=== PATIENT | female | born 1940 | race Caucasian/White ===

== ENCOUNTER → 2016-09-22 | Outpatient (CLI) | payer OTHER ==
[~2016-09-22] MED LIST: ALLOPURINOL 10100 M1 PO; AMLODIPINE BESYL5 M1 PO; APAP500 PO; ASA81BEC PO; BENZONATATE100 MG PO; BUPROPION HCL100 MG PO; CARVEDILOL25 MG PO; CLARITIN10 MG PO; CLEOCIN HCL300 MG PO; ENOXAPARIN60 MG/0.1 SUBQ; FERREX 150 FORT1 CAP PO; FISH OIL 1,001000 M2 PO; IBUPROFEN 800800 M1 PO; JANTOVEN5 MG PO; JANTOVEN6 MG PO; LASIX 40 MG TAB40 M2 PO; LEVAQUIN 250 M250 MG PO; LIPITOR 20 MG T20 M1 PO; LISINOPRIL5 MG PO; NAPROSYN500 MG PO; NEXIUM40 MG PO; NORCO 5-325 TA1 EACH PO; NORVASC5 MG PO; ONDANSETRON HCL4 M2 PO; PACERONE 200 M200 M1 PO; POTASSIUM20 PO; PREDNISONE 20 M20 MG PO; PROAIR HFA8.5 GM PO; SYMBICORT80 MCG/4.1 INH; VITAMIN D1000 UNI1 PO; ZANTAC 150MG T150 MG; ZYRTEC-D TABLE1 EAC1 PO; ZYRTEC10 M2 PO
== END ==
LOC: CAT 10:23
DX: J32.9 Chronic sinusitis, unspecified (principal)

== ENCOUNTER 2016-11-20 15:49 | Inpatient (IN) | payer OTHER ==
[~2016-11-20] VITALS: Ht 157.5 cm; Wt 86.2 kg
--- NOTE | ~2016-11-20 | 2DMMODE ---
[facility] [address] [place] [address] 2 D/M-MODE ECHOCARDIOGRAM Name: NICHOKETURAH DELMA Room #: 423-1 ADM IN M.R.#: [id number] Admission: 11/20/16 Attend Phys: Burt Noriega, Discharge: Date of : 40 Date of Service: 11/21/16 1225 Report #: [id number] THIS REPORT FOR: //name// APPROVED REPORT Study performed: 11/21/2016 11:21:03 EXAM: Comprehensive 2D, Doppler, and color-flow Echocardiogram Patient Location: Echo lab Room #: [facility] Status: routine Other Information Study Quality: Adequate Indications Acute Kidney Injury Hx SVT, DM, AFIB, HTN, AVR,CHF 2D Dimensions LVEF(%): 26.28 (>50%) IVSd: 11.01 (7-11mm) LVOT Diam: 18.87 (18-24mm) LVDd: 45.68 mm PWd: 10.72 (7-11mm) LVDs: 40.14 (25-40mm) Aortic Root: 32.63 mm IVC: 2.00 mm Reed's LVEF: 26.28 % Volumes Left Atrial Volume (Systole) Single Plane 4CH: 76.23 mL Single Plane 2CH: 95.11 mL LA ESV Index: 48.00 mL/m2 Aortic Valve AoV Peak Mac.: 4.18 m/s AO Peak Gr.: 69.78 mmHg LVOT Max P.62 mmHg AO Mean Gr.: 39.74 mmHg AO V2 Mean: 2.99 m/s LVOT Max V: 1.19 m/s AO V2 VTI: 118.45 cm ABIOLA Vmax: 0.79 cm2 Mitral Valve E/A Ratio: 1.2 MV Decel. Time: 334.72 ms MV E Max Mac.: 1.29 m/s MV A Mac.: 1.12 m/s [facility] [place] [address] 2 D/M-MODE ECHOCARDIOGRAM Name: KETURAH TORRE Room #: 423-1 ADM IN M.R.#: [id number] Admission: 11/20/16 Attend Phys: Burt Noriega, Discharge: Date of : 40 Date of Service: 11/21/16 1225 Report #: [id number] MV PHT: 97.07 ms IVRT: 64.59 ms Pulmonary Valve PV Peak Mac.: 1.20 m/s PV Peak Gr.: 5.74 mmHg Pulmonary Vein P Vein S: 0.49 m/s P Vein D: 0.67 m/s P Vein S/D Ratio: 0.73 Tricuspid Valve TR Peak Mac.: 3.34 m/s RAP Estimate: 5.00 mmHg TR Peak Gr.: 44.56 mmHg PA Pressure: 50.00 mmHg Left Ventricle The left ventricle is normal size. Mild concentric left ventricular hypertrophy. The left ventricular systolic function is normal. The left ventricular ejection fraction is within the normal range. LVEF is 50%. Right Ventricle The right ventricle is normal size. The right ventricular systolic function is normal. Atria Left atrium is moderately dilated. The right atrium size is normal. Aortic Valve [place] Mechanical aortic valve is present. (size unknown) Peak velocity of 4.2 m/s, peak pressure gradient of 70 mmHg and a mean of 40 mmHg. Trace aortic regurgitation. Mitral Valve Moderate mitral annular calcification. Trace mitral regurgitation. No evidence of mitral valve stenosis. Tricuspid Valve The tricuspid valve is normal in structure. There is trace tricuspid regurgitation. The right atrial pressure is estimated at 5 mmHg. There is moderate pulmonary hypertension with an estimated PAP of 50 mmHg[place] [address] 2 D/M-MODE ECHOCARDIOGRAM Name: KETURAH TORRE Room #: 423-1 [facility]#: [id number] Admission: 11/20/16 Attend Phys: Burt Noriega, Discharge: Date of : 40 Date of Service: 11/21/16 1225 Report #: [id number] The pulmonary valve is normal in structure. There is no pulmonic valvular regurgitation. Great Vessels The aortic root is normal in size. IVC is normal in size and collapses >50% with inspiration. Pericardium There is no pericardial effusion. <Conclusion> The left ventricle is normal size. LVEF is 50%. Left atrium is moderately dilated. [place] Mechanical aortic valve is present. (size unknown) Peak velocity of 4.2 m/s, peak pressure gradient of 70 mmHg and a mean of 40 mmHg. Velocity is consistent with stenotic physiology Trace aortic regurgitation. Moderate mitral annular calcification. Trace mitral regurgitation. The tricuspid valve is normal in structure. There is trace tricuspid regurgitation. The right atrial pressure is estimated at 5 mmHg. There is moderate pulmonary hypertension with an estimated PAP of 50 mmHg. <ELECTRONICALLY SIGNED> By: Don Leonard MD 11/21/16 1225 1225 1225 Don Leonard MD /INF
[2016-11-20 15:49] VITALS: BP 120/47
[2016-11-20 16:28] LABS: BASOPHILS 0.8 % (0.0-2.0); EOSINOPHILS 1.8 % (0.0-3.0); HEMATOCRIT 32.8 % (37.0-47.0); HEMOGLOBIN 10.9 gm/dL (12.0-15.0); LYMPHOCYTES 21.9 % (24.0-44.0); MCH 31.5 pg (26.0-34.0); MCHC 33.2 g/dL (28.0-37.0); MCV 94.8 fL (80.0-100.0); MONOCYTES 11.6 % (1.0-8.0); PLATELET COUNT 197 thou/uL (150-400); POLYS 63.9 % (36.0-66.0); RBC 3.46 mil/uL (4.20-5.00); RDW 14.9 % (10.5-14.5); WBC 6.3 thou/uL (4.0-11.0)
[2016-11-20 16:29] LABS: MANUAL DIFF NO
[2016-11-20 16:36] LABS: CALCIUM 8.3 mg/dL (8.5-10.1); CREATININE 3.2 mg/dL (0.6-1.0); POTASSIUM 5.1 mmol/L (3.5-5.1)
[2016-11-20 16:42] LABS: ALBUMIN 3.5 g/dL (3.4-5.0); TOTAL BILIRUBIN 0.7 mg/dL (<0.1-1.0); TOTAL PROTEIN 6.7 g/dL (6.4-8.2)
[2016-11-20] MEDS ORDERED: COUMADIN 5 MG TA5 M1 PO (17:16)
[2016-11-20] MEDS ORDERED: TORSEMIDE10 MG PO (17:16)
[2016-11-20 17:52] LABS: URINE BILIRUBIN NEGATIVE (Negative); URINE BLOOD NEGATIVE (Negative); URINE COLOR YELLOW; URINE GLUCOSE-RANDOM* NEGATIVE (Negative); URINE KETONES NEGATIVE (Negative); URINE LEUKOCYTES-REFLEX NEGATIVE (Negative); URINE PROTEIN (DIPSTICK) NEGATIVE (Negative); URINE SPECIFIC GRAVITY 1.015 (1.003-1.035); URINE UROBILINOGEN 0.2 E.U./dl (0.2-1.0)
[2016-11-20 18:43] VITALS: BP 148/57
[2016-11-20 18:44] VITALS: BP 148/57
[2016-11-20 19:15] VITALS: BP 148/57
[2016-11-20 19:43] VITALS: BP 148/54
[2016-11-20 21:18] VITALS: BP 148/54
[2016-11-20] MEDS ORDERED: ALLOPURINOL 10100 M1 PO (22:39)
[2016-11-20] MEDS ORDERED: DEMADEX20 MG PO (22:40)
[2016-11-21 03:35] VITALS: BP 153/100
[2016-11-21 07:33] VITALS: BP 146/54
[2016-11-21 08:50] LABS: CALCIUM 8.3 mg/dL (8.5-10.1); CREATININE 2.5 mg/dL (0.6-1.0); POTASSIUM 4.4 mmol/L (3.5-5.1)
[2016-11-21 16:41] VITALS: BP 146/41
[2016-11-21 19:52] VITALS: BP 134/35
[2016-11-22 04:35] VITALS: BP 158/50
[2016-11-22 07:11] LABS: INR 3.1; PROTIME 31.4 Seconds (9.3-11.4)
[2016-11-22 07:13] LABS: ALBUMIN 3.2 g/dL (3.4-5.0); CALCIUM 8.7 mg/dL (8.5-10.1); CREATININE 2.6 mg/dL (0.6-1.0); PHOSPHORUS 3.9 mg/dL (2.5-4.9); POTASSIUM 4.6 mmol/L (3.5-5.1)
[2016-11-22 08:00] VITALS: BP 177/45
[2016-11-22 09:14] VITALS: BP 177/45
== END 2016-11-22 10:46 | disposition home or self-care (01) | DRG 683 ==
LOC: ER 15:49 → 4E 18:36 → EROBS 18:36 → 4E 19:23
PROVIDERS: Family Medicine; Hospitalist; Physician Assistant
DX: N17.9 Acute kidney failure, unspecified (principal); I13.0 Hypertensive heart and chronic kidney disease with heart failure and stage 1 through stage 4 chronic kidney disease, or unspecified chronic kidney disease; F32.9 Major depressive disorder, single episode, unspecified; I48.91 Unspecified atrial fibrillation; E78.00 Pure hypercholesterolemia, unspecified; K21.9 Gastro-esophageal reflux disease without esophagitis; E11.9 Type 2 diabetes mellitus without complications; I50.9 Heart failure, unspecified; N18.9 Chronic kidney disease, unspecified; Z90.49 Acquired absence of other specified parts of digestive tract; Z95.2 Presence of prosthetic heart valve; Z88.8 Allergy status to other drugs, medicaments and biological substances
CPT/HCPCS: 10084